=== PATIENT | male | born 1940 | race Caucasian/White ===

== ENCOUNTER → 2017-11-25 11:01 | Outpatient (CLI) | payer MEDICARE | END | disposition home or self-care (01) | LOC: D.US 11:01 | DX: R31.21 Asymptomatic microscopic hematuria (principal) ==

== ENCOUNTER → 2017-12-13 13:00 | Outpatient (CLI) | payer MEDICARE ==
[2017-12-13 13:49] LABS: BASOPHILS 0.4 % (0-2); EOSINOPHILS 2.6 % (0-7); HEMATOCRIT 40.1 % (42.0-54.0); HEMOGLOBIN 14.1 g/dL (13.5-17.5); IMMATURE GRANULOCYTES 0.3 % (0-5); MCH 30.4 pg (26.0-34.0); MCHC 35.2 g/dL (31.0-37.0); MCV 86.4 fL (80.0-100.0); MONOCYTES 6.1 % (2-11); NEUTROPHILS 71.6 % (40-80); PLATELET COUNT 213 10x3/uL (130-400); RBC 4.64 10x6/uL (4.20-6.10); RDW 14.3 % (11.5-14.5); WBC 6.8 10x3/uL (4.8-10.8)
[2017-12-13 14:09] LABS: ANION GAP 11.7 mmol/L (8-16); CALCIUM 8.4 mg/dL (8.5-10.1); CARBON DIOXIDE 29.8 mmol/L (21.0-32.0); CREATININE - SERUM 1.6 mg/dL (0.6-1.3); PHOSPHOROUS 3.5 mg/dL (2.5-4.9); POTASSIUM - SERUM 3.5 mmol/L (3.5-5.1)
[2017-12-15 16:54] LABS: CREATININE - SERUM 1.6 mg/dL (0.6-1.3)
[2017-12-15 16:57] LABS: CREATININE CLEARANCE 56 ml/min (71-135)
[2017-12-15 16:58] LABS: PROTEIN - 24HR URINE 8580 mg/24hr (0-149.1)
== END | disposition home or self-care (01) ==
LOC: D.LAB 13:00
PROVIDERS: Internal Medicine Nephrology
DX: N18.9 Chronic kidney disease, unspecified (principal)

== ENCOUNTER → 2018-06-29 16:35 | Outpatient (CLI) | payer MEDICARE | END | disposition home or self-care (01) | LOC: D.US 16:00 | PROVIDERS: ATTEND Family Medicine | DX: R60.0 Localized edema (principal) ==

== ENCOUNTER → 2018-07-10 11:11 | Outpatient (CLI) | payer MEDICARE ==
--- NOTE | ~2018-07-10 | ST ---
PATIENT:TWILA ALVARADO MEDICAL RECORD: [id number] SEX: M LOCATION:[facility] ORDER #: ADMISSION DATE: 07/10/18 AGE OF PATIENT: 77 REFERRING PHYSICIAN: INTERPRETING PHYSICIAN: RENU CHOE MD DATE OF SERVICE: 07/10/2018 PROCEDURE: Nuclear stress test. INDICATIONS: Shortness of breath, chest pain, hypertension, hyperlipidemia, atrial fibrillation. He was exercised on standard Vidal protocol for 6 minutes achieving 100% max target heart rate response with 27 mCi of sestamibi injected at peak stress, 9 mCi used previously for rest images. FINDINGS: Gated SPECT reveals preserved ejection fraction at 48% with good wall motion and thickening and brightening throughout all segments. SPECT imaging Cardiolite was used as myocardial fusion agent. There is homogeneous uptake throughout all segments at rest and stress with no evidence of inducible ischemia or previous infarction. OVERALL IMPRESSION: 1. This is a normal nuclear stress test with no evidence of inducible ischemia or previous infarction. 2. Gated SPECT reveals a preserved ejection fraction at 48%. In this patient with ongoing symptomatology, the current scan does not suggest the presence of hemodynamically significant coronary artery disease. Evaluate noncardiac etiology of chest pain. TRANSINT:[id number] Voice Confirmation ID: [id number] DOCUMENT ID: [id number] RENU CHOE MD CC: [id number] DICTATION DATE: 07/11/18 1136 COMMERCIAL LOAN COORDINATOR: 07/11/18 2332 DEP CLI 07/10/18 [facility] [address] [place] [address]
--- NOTE | 2018-07-13 16:58 | EC ---
PATIENT:TWILA ALVARADO DATE OF SERVICE: 07/10/18 SEX: M MEDICAL RECORD: [id number] DATE OF : 40 LOCATION:[facility] AGE OF PATIENT: 77 ADMISSION DATE: 07/10/18 REFERRING PHYSICIAN: INTERPRETING PHYSICIAN: RENU FELIPE MD ECHOCARDIOGRAM REPORT ECHO CHARGES 4 ECHO COMPLETE Date: 07/10/18 CLINICAL DIAGNOSIS: AFIB ECHOCARDIOGRAPHIC MEASUREMENTS (adult normal given) AC root (d.<3.7cm) 3.0 cm LV Septum d (<1.2 cm> 1.1 cm Valve Excursion 1.4 cm LV Septum (systole) 1.7 cm Left Atria (s.<4.0cm> 3.8 cm LVPW d(<1.2cm) 1.4 cm RV (d.<2.3cm) 3.9 cm LVPW (sytole) 1.7 cm LV diastole(<5.6CM) 6.3 cm MV E-F(>70mm/sec) cm LV systole 3.9 cm LVOT Diameter 1.7 cm MV exc.(>10mm) 1.2 cm Est.ejection fraction (50-75%) % DOPPLER: LVIT cm/sec A 53.0 cm/sec E 109 cm/sec LA cm/sec RVSP 42 mmHg LVOT 119 cm/sec AOP1/2T 627 m/s Asc. Ao 169 cm/sec RVOT 100 cm/sec RA cm/sec PA 109 cm/sec AV Gradient Peak 11.43mmHg AV Mean 5.62 mmHg AV Area 1.6 cm MV Gradient Peak 7.98 mmHg MV Mean 2.59 mmHg MV Area cm COMMENTS: Scuba Diving Instructor: Sandra SHELBY Brim Setter: 1 Dr. Felipe TAPE# PACS Pericardial Effusion N DATE OF SERVICE: ECHOCARDIOGRAM FINDINGS: 1. Left ventricular chamber size is within normal limits. Left ventricular systolic function is normal. Overall ejection fraction estimated at 60%. 2. Left atrium is within normal limits at 3.8 cm. Right atrium and right ventricular chamber sizes are mildly dilated. 3. Valvular structures: Aortic valve has aortic sclerosis, but no significant ECHOCARDIOGRAM REPORT [id number] TWILA ALVARADO aortic stenosis. Remaining valvular structures have normal structure and motion. 4. Doppler interrogation reveals mild aortic insufficiency, mild mitral regurgitation, moderate tricuspid regurgitation, no other valvular insufficiency or stenosis. Pulmonary systolic pressure is estimated at 42 mmHg. 5. No evidence of pericardial effusion or left ventricular thrombus. TRANSINT:[id number] Voice Confirmation ID: [id number] DOCUMENT ID: [id number] RENU FELIPE MD at 1658 CC: [id number] DICTATION DATE: 07/11/18 1110 DESIGN ASSISTANT: 07/11/18 1203 DEP CLI 07/10/18 [facility] [id number] [place] [address]
== END | disposition home or self-care (01) ==
LOC: D.HCCARDIO 11:11
PROVIDERS: ATTEND Internal Medicine Interventional Cardiology
DX: I48.91 Unspecified atrial fibrillation (principal)

== ENCOUNTER 2018-09-18 12:09 | Emergency (ER) | payer MEDICARE ==
[~2018-09-18] VITALS: Ht 177.8 cm; Wt 88.2 kg
[2018-09-18 12:12] VITALS: Ht 177.8 cm; Wt 88.2 kg
[2018-09-18] MEDS ORDERED: XANAX0.5 MG PO (12:15)
[2018-09-18] MEDS ORDERED: BYSTOLIC10 MG PO (12:15)
[2018-09-18] MEDS ORDERED: CHLORHEXIDINE GLUCON (12:17)
[2018-09-18] MEDS ORDERED: FUROSEMIDE20 MG PO (12:17)
[2018-09-18] MEDS ORDERED: GLUCOTROL 5 MG T5 MG PO (12:18)
[2018-09-18] MEDS ORDERED: HYDRALAZINE HCL25 MG PO (12:19)
[2018-09-18] MEDS ORDERED: JANUVIA100 MG PO (12:21)
[2018-09-18] MEDS ORDERED: TIROSINT25 MCG PO (12:22)
[2018-09-18] MEDS ORDERED: K-TAB10 MEQ PO ×2 (12:23→13:33)
[2018-09-18] MEDS ORDERED: ZOCOR20 MG PO (12:23)
[2018-09-18] MEDS ORDERED: TRAZODONE HCL150 MG PO ×3 (12:24→12:27)
[2018-09-18] MEDS ORDERED: DIOVAN320 MG PO (12:25)
[2018-09-18] MEDS ORDERED: HYDROCHLOROTHIA25 MG PO (12:25)
[2018-09-18] MEDS ORDERED: HYDRALAZINE HCL50 MG PO (12:54)
[2018-09-18 13:02] LABS: BASOPHILS 0.5 % (0-2); EOSINOPHILS 4.2 % (0-7); HEMATOCRIT 38.3 % (42.0-54.0); HEMOGLOBIN 13.8 g/dL (13.5-17.5); IMMATURE GRANULOCYTES 0.3 % (0-5); LYMPHOCYTES 20.2 % (15-50); MCH 30.5 pg (26.0-34.0); MCV 84.5 fL (80.0-100.0); MEAN PLATELET VOLUME 9.4 fL (7.4-10.4); MONOCYTES 5.6 % (2-11); NEUTROPHILS 69.2 % (40-80); RBC 4.53 10x6/uL (4.20-6.10); RDW 14.3 % (11.5-14.5); WBC 5.7 10x3/uL (4.8-10.8)
[2018-09-18 13:05] LABS: PLATELET COUNT 154 10x3/uL (130-400)
[2018-09-18 13:22] LABS: ALBUMIN 2.8 g/dL (3.4-5.0); ANION GAP 12.4 mmol/L (8-16); BILIRUBIN - TOTAL 1.81 mg/dL (0.2-1.3); CALCIUM 7.9 mg/dL (8.5-10.1); CARBON DIOXIDE 28.7 mmol/L (21.0-32.0); CREATININE - SERUM 1.9 mg/dL (0.6-1.3); POTASSIUM - SERUM 3.1 mmol/L (3.5-5.1); PROTEIN - SERUM 6.4 g/dL (6.4-8.2)
[2018-09-18 13:31] LABS: THYROID STIMULATING HORMONE 4.86 uIU/mL (0.36-3.74)
[2018-09-18 13:55] VITALS: BP 158/96
== END 2018-09-18 13:55 | disposition home or self-care (01) ==
LOC: D.ER 12:09
PROVIDERS: Emergency Medicine
DX: I12.9 Hypertensive chronic kidney disease with stage 1 through stage 4 chronic kidney disease, or unspecified chronic kidney disease (principal); N18.9 Chronic kidney disease, unspecified; E87.6 Hypokalemia; E11.9 Type 2 diabetes mellitus without complications

== ENCOUNTER 2018-12-07 06:15 | Day surgery (SDC) | payer MEDICARE ==
[2018-12-05 10:58] LABS: HEMOGLOBIN 13.4 g/dL (13.5-17.5); MCH 31.2 pg (26.0-34.0); MCHC 35.3 g/dL (31.0-37.0); MCV 88.6 fL (80.0-100.0); MEAN PLATELET VOLUME 9.4 fL (7.4-10.4); RBC 4.29 10x6/uL (4.20-6.10); RDW 13.6 % (11.5-14.5); WBC 5.7 10x3/uL (4.8-10.8)
[2018-12-05 11:17] LABS: ANION GAP 14.1 mmol/L (8-16); CARBON DIOXIDE 31.3 mmol/L (21.0-32.0); CREATININE - SERUM 1.7 mg/dL (0.6-1.3); POTASSIUM - SERUM 3.4 mmol/L (3.5-5.1)
[~2018-12-07] VITALS: Ht 177.8 cm; Wt 93.9 kg
[~2018-12-07 06:15] MED LIST: ASPIRIN EC81 M1 PO; BYSTOLIC10 MG PO; CENTRUM MEN'S1 EACH PO; CHLORHEXIDINE GLUCON; DIOVAN320 MG PO; FISH OIL 1,0001 CA1 PO; FLOMAX0.4 MG PO; GLUCOTROL 5 MG T5 MG PO; HYDRALAZINE HCL25 MG PO; HYDRALAZINE HCL50 MG PO; HYDROCHLOROTHIA25 MG PO; JANUVIA100 MG PO; K-TAB10 MEQ PO; LASIX40 MG PO; TIROSINT25 MCG PO; TOPROL XL50 MG PO; TRAZODONE HCL150 MG PO; VITAMIN C500 M1 PO; XANAX0.5 MG PO; ZOCOR20 MG PO
[2018-12-07 06:57] VITALS: BP 159/94; Ht 177.8 cm; Wt 93.9 kg
--- NOTE | 2018-12-07 09:54 | NUR ---
0945-DISCHARGE CRITERIA MET. ABLE TO URINATE WITHOUT COMPLICATIONS. REVIEWED POST OPERATIVE INSTRUCTIONS WITH PT AND SPOUSE.VERBALIZED UNDERSTANDING. ESCORTED OUT VIA W/C WITH SPOUSE AWAITING TO DRIVE HOME.
--- NOTE | 2018-12-07 12:27 | OP ---
PATIENT NAME: TWILA ALVARADO MEDICAL RECORD: [id number] :40 LOCATION:[facility] ADMISSION DATE: SURGEON: ZHANE ERNST MD DATE OF OPERATION: 12/07/2018 SURGEON: Zhane Ernst MD ANESTHESIA: TIVA by Jacob Kong CRNA. 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 PROCEDURE: UroLift times 4 in box configuration around the bladder neck. FINDINGS: Obstructive bladder neck, nonobstructive lateral lobes. Single ureteral orifices bilaterally with no bladder tumors. ESTIMATED BLOOD LOSS: None. CLINICAL HISTORY: This is a 78-year-old male, who has obstructive BPH symptoms. He was started on finasteride and this gave him impotence. He has stopped using the medication. He has been on Flomax in the meantime. He still has nocturia times 2-3 and daytime urinary frequency with occasional urge incontinence with the Flomax. He wishes to have the UroLift procedure done. He is not allergic to any medications. He was given [employer] international marketing coordinator to the OR. DESCRIPTION OF PROCEDURE: The patient was given IV sedation. He was placed in the lithotomy position and prepped and draped. The UroLift scope was introduced. It was found that the obstruction was primarily at the bladder neck. A 1.5 cm distal to the bladder neck at the anterolateral sulcus on each side, we placed one UroLift unit. This opened up the bladder neck significantly. Then, at the mid prostate urethra level, 1.5 cm distal to the bladder neck, we placed 2 more units. This formed a box type configuration, which really opened up the bladder neck. The bladder was left partly full for a voiding trial. The scope was removed. I will see him in followup in 1 month's time. TRANSINT:[id number] Voice Confirmation ID: [id number] DOCUMENT ID: [id number] ZHANE ERNST MD at 1227 CC: [id number] DICTATION DATE: 12/07/18911 SCHEDULING CLERK: 12/07/18 1004 [facility] 12/07/18 [place] [address]
== END 2018-12-07 09:45 | disposition home or self-care (01) ==
LOC: D.OPS 06:15 → D.PAN 08:35 → D.OPS 08:35
PROVIDERS: Anesthesiology; ATTEND Urology
DX: N40.1 Benign prostatic hyperplasia with lower urinary tract symptoms (principal); N13.8 Other obstructive and reflux uropathy

== ENCOUNTER → 2019-04-13 16:19 | Outpatient (CLI) | payer MEDICARE ==
[2018-12-07 06:57] VITALS: BMI 29.7
== END | disposition home or self-care (01) ==
LOC: D.LABREF 16:19
PROVIDERS: ATTEND Urology
DX: R31.9 Hematuria, unspecified (principal); N39.0 Urinary tract infection, site not specified

== ENCOUNTER → 2019-05-07 17:31 | Outpatient (CLI) | payer MEDICARE ==
[2018-12-07 06:57] VITALS: BMI 29.7
== END | disposition home or self-care (01) ==
LOC: D.LABREF 17:31
PROVIDERS: ATTEND Urology
DX: N39.0 Urinary tract infection, site not specified (principal)